=== PATIENT | female | born 1975 | race African-American/Black ===

== ENCOUNTER 2019-10-25 09:10 | Emergency (ER) | payer MEDICAID ==
[~2019-10-25] VITALS: Ht 162.6 cm; Wt 73.0 kg
[2019-10-25 09:14] VITALS: BP 121/71
== END 2019-10-25 14:48 | disposition left against medical advice (07) ==
LOC: ER 09:10
DX: R50.9 Fever, unspecified (principal); R42 Dizziness and giddiness; R51 Headache; Z53.21 Procedure and treatment not carried out due to patient leaving prior to being seen by health care provider